=== PATIENT | male | born 1995 | race Hispanic/Latino ===

== ENCOUNTER 2018-06-11 21:45 | Inpatient (IN) | payer BC ==
[2018-06-11 22:02] VITALS: O2SAT 100
--- NOTE | 2018-06-11 22:54 | ED PDOC ---
HPI: Psych/Substance Abuse Time Seen by Provider: 06/11/18 22:40 Chief Complaint (Nursing): Psychiatric Evaluation Chief Complaint (Provider): PSYCH EVAL History Per: Patient (22 Y/O MALE H/O BIPOLAR DISORDER/SCHIZOPHRENIA NONCOMPLIANT WITH FOLLOW UP WITH OUTPATIENT PROGRAM AT [facility]. PATIENT WORKS T/W/TH BUT WAS NOTED BY WORK TO BE PACING OUTSIDE. USUALLY RECEIVES DEPAKOTE INJECTIONS AT OUTPATIENT FACILITY. FATHER NOTES PATIENT MADE STATEMENT OF SI BUT NO PLAN.) Past Medical History Reviewed: Historical Data, Nursing Documentation, Vital Signs Vital Signs: Last Vital Signs Temp 98.2 F 06/11/18 22:00 Pulse 62 06/11/18 22:00 Resp 16 06/11/18 22:00 BP 116/71 06/11/18 22:00 Pulse Ox 100 06/11/18 22:00 Primary Care Provider: Non [facility] Provider, - Family History Family History: States: No Known Family Hx - Allergies Allergies/Adverse Reactions: Allergies Allergy/AdvReac Type Severity Reaction Status Date / Time No Known Allergies Allergy Verified 06/11/18 22:01 Review of Systems ROS Statement: Except As Marked, All Systems Reviewed And Found Negative Physical Exam - Reviewed Nursing Documentation Reviewed: Yes Vital Signs Reviewed: Yes - Physical Exam Appears: Positive for: Well, Non-toxic, No Acute Distress Head Exam: Positive for: ATRAUMATIC, NORMAL INSPECTION, NORMOCEPHALIC Skin: Positive for: Normal Color, Warm, DRY Eye Exam: Positive for: EOMI, Normal appearance, PERRL ENT: Positive for: Normal ENT Inspection Neck: Positive for: Normal, Painless ROM Cardiovascular/Chest: Positive for: Regular Rate, Rhythm Respiratory: Positive for: CNT, Normal Breath Sounds Gastrointestinal/Abdominal: Positive for: Normal Exam, Soft Back: Positive for: Normal Inspection Extremity: Positive for: Normal ROM Neurological/Psych: Positive for: Awake, Alert, Normal Tone - Laboratory Results Result Diagrams: 06/11/18 22:57 06/11/18 22:57 - ECG O2 Sat by Pulse Oximetry: 100 - Progress ED Course And Treament: seen by crisis d/w dr. han admitted to dr. han for schizophrenia Disposition - Clinical Impression Clinical Impression: Schizophrenia - Patient ED Disposition Is Patient to be Admitted: Yes - Disposition Disposition Time: 01:14 Condition: FAIR - Pt Status Changed To: Hospital Disposition Of: Inpatient - Admit Certification Admit to Inpatient:: After my assessment, the patient will require hospitalization for at least two midnights. This is because of the severity of symptoms shown, intensity of services needed, and/or the medical risk in this patient being treated as an outpatient.
[2018-06-11 23:43] LABS: BASO % 0.7 % (0.0-2.0); EOS # 0.1 K/uL (0.0-0.7); EOS % 1.7 % (0.0-4.0); LYMPH # 2.4 K/uL (1.0-4.3); LYMPH % 37.9 % (20.0-40.0); MEAN CORPUSCULAR HEMOGLOBIN 26.2 pg (27.0-31.0); MEAN CORPUSCULAR HGB CONC 32.3 g/dL (33.0-37.0); MEAN PLATELET VOLUME 9.9 fl (7.2-11.7); MONO # 0.5 K/uL (0.0-0.8); MONO % 8.4 % (0.0-10.0); NEUT # 3.3 K/uL (1.8-7.0); NEUT % 51.3 % (50.0-75.0); NRBC % 0.1 % (0.0-0.0); RBC 5.35 Mil/uL (4.40-5.90); RED CELL DISTRIBUTION WIDTH 13.6 % (11.5-14.5); SQUAMOUS EPITHIAL < 1 /hpf (0-5); URINE BACTERIA RARE (<OCC); URINE BILIRUBIN NEGATIVE (NEGATIVE); URINE BLOOD NEGATIVE (NEGATIVE); URINE COLOR YELLOW (YELLOW); URINE GLUCOSE (UA) NEG (NEGATIVE); URINE LEUKOCYTE ESTERASE NEG Leu/uL (Negative); URINE PROTEIN NEGATIVE (NEGATIVE); URINE UROBILINOGEN 0.2-1.0 mg/dL (0.2-1.0); WHITE BLOOD COUNT 6.4 K/uL (4.8-10.8)
[2018-06-11 23:45] LABS: URINE CLARITY SLIGHT-CLOUDY (Clear)
[2018-06-11 23:51] LABS: ALB/GLOB RATIO 1.3 (1.0-2.1); ALBUMIN 4.7 g/dL (3.5-5.0); ALT/SGPT 37 U/L (21-72); AST/SGOT 30 U/L (17-59); BLOOD UREA NITROGEN 11 mg/dl (9-20); CALCIUM 9.7 mg/dL (8.4-10.2); GFR NON-AFRICAN AMERICAN > 60
[2018-06-12] LABS: BARBITURATES, UR NEGATIVE (NEGATIVE); BENZODIAZEPINES, UR NEGATIVE (NEGATIVE); OPIATES, UR NEGATIVE (NEGATIVE); PHENCYCLIDINE, UR NEGATIVE (NEGATIVE)
[2018-06-12] MEDS ORDERED: Magnesium Hydroxide Susp 30 ml UD PO PRN (02:13)
[2018-06-12] MEDS ORDERED: Alum-Mag Hydrox-Simethicone Susp (30 mL) PO PRN (02:13)
[2018-06-12] MEDS ORDERED: DiphenhydrAMINE 50 mg/ml Inj IM PRN (02:13)
--- NOTE | 2018-06-12 02:33 | PCM.BM ---
<Samia Robb - Last Filed: 06/12/18 02:31> Treatment Plan Problems - Problems identified on initial assessmt Auditory Hallucinations Date Initiated: 06/12/18 Time Initiated: 02:32 Assessment reference: NA Status: Active Visual Hallucinations Date Initiated: 06/12/18 Time Initiated: 02:32 Assessment reference: NA Status: Active Altered Sleep Patterns Date Initiated: 06/12/18 Time Initiated: 02:32 Assessment reference: NA Status: Active Hopelessness/ Helplessness Date Initiated: 06/12/18 Time Initiated: 02:33 Assessment reference: NA Status: Active Treatment assets and liabiliti Patient Assests: adapts well, cooperative, motivated, self-reliant, ADL independent, physically healthy, good support system, negotiates basic needs Patient Liabilities: other (Autism) - Milieu Protocol Maintain good personal hygiene: daily Encourage regular showers, every shift Remind patient to perform daily oral care, every shift Assist patient to perform ADL's Conduct patient checks and document Observation sheet: Q15 minutes Maintain personal safety: every shift Educate patient to report safety concerns to staff, every shift Monitor environment for contraband/sharps Medication safety: Monitor for expected outcome, potential side effects: every shift, Assess barriers to learning: every shift, Assess readiness for medication education: every shift <Karolina Correa - Last Filed: 06/13/18 11:50> Treatment assets and liabiliti Patient Assests: adapts well, cooperative, motivated, self-reliant, good support system (Pt. reports having a loving and supportive relationship with parents and siblings. ) Patient Liabilities: relationship conflicts (Pt. denies any strained relationships but identifies parents separation as a stressor. ), other (Autism- resulting in limited insight/focus) Family Contact Family involvement: Family/SO is involved Family contact: Patient agrees to contact, Family has been contacted by patient, Telephone contact initiated by staff Family contact name: Alexey(father)([phone]) Family contacted how many times per week?: 2 Family contact comment: [employer] placed call to pts father (Alexey [phone]) to discuss pts progress on 3NP, collect further collateral information, and address any family concerns. [employer]per provided clinical updates regarding pts progress/current presentation on 3NP. [employer] Helper explained that pt. has reported improvement in sxs since admission (AH, sxs of depression/anxiety) but requires further stabilization through medication management and group supportive therapy. Pts father expressed understanding of the above. [employer] Helper reported that pt. appears socially withdrawn. Pts father explained that pt. might be having trouble adjusting to a new psychiatric unit since pt. has only ever been admitted to [facility]. [employer] Helper notified pts father that [facility] will be notified of pts hospitalization and aftercare appointment will be confirmed/scheduled by rewriter. Pts father reported that pt. is adherent with all aftercare and has a supportive family. Pts father reports that pt. has developed a supportive and loving relationship with sister in-law (Cassandra) who recommended [facility] based on hx of mental health tx. Benefits of family support and understanding of mental health tx discussed. Additional information regarding nature of tx provided on 3NP, weekend visiting hours, and unit rules/milieu was provided upon fathers request. Pts father denied having concerns regarding pts tx. [employer]per to continue to provide clinical updates through-out pts stabilization. - Outside Agency Agency 1 Agency contact name: [facility]) Agency contact number: ([phone]) - Goals for Treatment Patient goals for treatment: Patient to continue stabilization on 3NP through medication management and group/supportive therapy. Patient to be encouraged to attend groups regularly to promote self-awareness, reality oriented thought, and improve insight, compliance, coping skills and self-esteem. Patient to be provided with referral for appropriate level of aftercare to reduce risk of future hospitalizations and ensure safety in the community. Pt. identified having the voices "go away" as primary tx goal. Discharge/Continuing Care - Education Needs Education Needs: Family Medication, Family Community resources, Patient Medication, Patient Diagnosis/Disease Process, Patient Coping Skills, Patient Community resources, Patient Aftercare Safety Plan - Discharge Discharge Criteria: Tolerates medication w/o severe side effects, Free of Suicidal thoughts, Free of Homicidal thoughts, Free of paranoid thoughts, Normal sleep pattern, Ability to care for self Discharge to:: Home, With Family <Marlon Flores - Last Filed: 06/14/18 15:11> Discharge/Continuing Care - Treatment Team Participation Patient/Family/SO Statement: 06/14/18 15:11 Pt met with in treatment team on 06/14/18. Pt was told that he would be discharged on 06/15 and he was very excited with this news. Pt was able to discuss aftercare safety plan and healthy coping skills when he begins to feel overwhelmed. Pt reported he draws, works out and listens and writes music. Pt denied depression, SI/HI and AVT hallucinations. Pt reported he is feeling "good" and his appearance was bright and he was smiling. Pt was pleasant and polite. Pt was able to verbalize triggers of loud, overwhelming situation. Pt is oriented X4. Discussed with Family/SO: Yes Was Patient/Family/SO present at Treatment Team Meeting: Yes <Telma Sánchez - Last Filed: 06/17/18 11:18> - Diagnosis (1) Depression Status: Acute Interventions: 06/14/18 13:48 start risperidone (2) Schizophrenia Status: Acute Interventions: 06/14/18 13:48 start lexapro
--- NOTE | 2018-06-12 15:01 | PCM.PSYCH ---
Initial Psychiatric Evaluation - Initial Psychiatric Evaluation Type of Admission: Voluntary Legal Status: Capacity Chief Complaint (in patient's own words): I AM HAVING SUICIDAL THOUGHTS AND i AM VERY ANXIOUS History of Present Illness and Precipitating Events: PT IS 22YSold male with previous diagnosis of schizophrenia and autistic spectrum disorder brought to ER by father due to increased depression and suicidal ideation pt recently discharged from hospital , for past two weeks has been feeling anxious, experiencing panic attacks with increased heart rate ,sweating and tremulousness, pt stated feeling hopeless and helpless, poor motivation, isolating himself in his room, experieng suicidal ideation, with previous suicidal attempt by overdose on medications, pt reported recent divorce of parents on the unit presenting with depressed mood and affect, denied active thoughts of self ahrm on the unit denied command hallucinations Current Medications: Active Medications Generic Name Dose Route Start Last Admin Trade Name Freq PRN Reason Stop Dose Admin Acetaminophen 650 mg 06/12/18 02:13 Tylenol 325mg Tab PO Q4 PRN Pain, moderate (4-7) Al Hydrox/Mg Hydrox/Simethicone 30 ml 06/12/18 02:13 Maalox Plus 30 Ml PO Q4 PRN Dyspepsia Benztropine Mesylate 1 mg 06/12/18 22:00 Cogentin PO HS KATIUSKA Diphenhydramine HCl 50 mg 06/12/18 02:13 Benadryl IM Q6 PRN Extrapyramidal S/S Unable PO Diphenhydramine HCl 50 mg 06/12/18 02:13 Benadryl PO Q6 PRN Extrapyramidal Symptoms Diphenhydramine HCl 50 mg 06/12/18 02:18 Benadryl PO HS PRN Sleep Divalproex Sodium 500 mg 06/13/18 09:00 Depdunia White(*Bid*) PO DAILY KATIUSKA Divalproex Sodium 1,000 mg 06/12/18 22:00 Jewels White(*Bid*) PO HS KATIUSKA Escitalopram Oxalate 5 mg 06/12/18 22:00 Lexapro PO HS KATIUSKA Haloperidol 5 mg 06/12/18 02:13 Haldol PO Q4 PRN Agitation Haloperidol Lactate 5 mg 06/12/18 02:13 Haldol IM Q4 PRN Agitation, Unable to Take PO Lorazepam 2 mg 06/12/18 02:13 Ativan IM Q4 PRN Anxiety/Agitation,Unable PO Lorazepam 1 mg 06/12/18 02:13 Ativan PO Q8 PRN Anxiety/Agitation Magnesium Hydroxide 30 ml 06/12/18 02:13 Milk Of Magnesia PO HS PRN Constipation Risperidone 3 mg 06/12/18 22:00 Risperdal M-Tab PO HS KATIUSKA Past Psychiatric History - Past Psychiatric History Explanation of prior treatment: multiple inpatient hospitalizations since age 10, one suicidal attempt by overdose Pertinent Medical Hx (Current Medical&Sleep Prob, Allergies): Allergies Allergy/AdvReac Type Severity Reaction Status Date / Time peanut Allergy SHORTNESS Verified 06/12/18 02:21 OF BREATH shellfish Allergy SHORTNESS Uncoded 06/12/18 02:21 OF BREATH Mental Status Examination - Personal Presentation Personal Presentation: Looks stated age - Affect Affect: Constricted, Depressed - Motor Activity Motor Activity: Psychomotor Retardation - Reliability in Providing Information Reliability in Providing Information: Fair - Speech Speech: Relevant - Mood Mood: Depressed, Anxious - Formal Thought Process Formal Thought Process: Circumstantial - Obsessions/Compulsions Obsessions: No Compulsions: No - Cognitive Functions Orientation: Person, Place, Situation Sensorium: Alert Abstract Thinking: [place] Judgement: Imparied, as evidence by: Poor judgement Memory: Recent intact, as evidence by: Ability to recall events of the day - Risk Risk: Suicidal, Diminished functioning - Strength & Assets Inventory Strength & Assets Inventory: Family support - Limitations Additional comments: work problems DSM 5 DX - DSM 5 DSM 5 Diagnosis: schizophrenia depression autistic spectrum disorder - Recommended/Plan of Treatment Treatment Recommendations and Plan of Treatment: depakote 500mg daily, 1500mg qhs risperidone 3mg qhs, cogentin 1mg qhs lexapro 5mg daily cbt group and supportive therapy
[2018-06-12] MEDS: Divalproex 500 mg DR(BID formulation) PO SCH (21:09)
[2018-06-12] MEDS: Risperidone M tab 1 MG PO SCH (21:09)
[2018-06-13] MEDS: Divalproex 500 mg DR(BID formulation) PO SCH ×2 (13:26→21:21)
--- NOTE | 2018-06-13 14:54 | PCM.PYCHPN ---
Psychiatric Progress Note - Psychiatric Progress Note Patient seen today, length of contact: pt evaluated discussed with team chart reviewed Patient Chief Complaint: I am tired Problems Identified/Issues Discussed: pt seen in bed, partial eye contact low energy and low motivation, guarded, isolates himself in the room, continues to be depressed,discussed increasing dose of lexapro, pt denied side effects, denied active thoughts of self harm on the unit, denied command hallucinations Medical Problems: multiple inpatient hospitalizations since age 10, one suicidal attempt by overdose DSM 5 Symptoms Update: schizophrenia depression autistic spectrum disorder Medication Change: Yes (increase lexapro ) Medical Record Reviewed: Yes Mental Status Examination - Cognitive Function Orientation: Person, Place, Situation Attention: WNL Concentration: WNL Association: WNL Fund of Knowledge: Poor Decription of patient's judgement and insights: partial insight fair judgment - Mood Mood: Depressed, Anxious - Affect Affect: Constricted, Depressed - Speech Speech: Soft - Formal Thought Process Formal Thought Process: Circumstantial - Suicidal Ideation Suicidal Ideation: No - Homicidal Ideation Homicidal Ideation: No Goal/Treatment Plan - Goal/Treatment Plan Need for Continued Stay: Severe depression anxiety, Discharge may exacerbated symptoms Progress Toward Problem(s) and Goals/Treatment Plan: depakote 500mg daily, 1500mg qhs/ follow up on depakote level risperidone 3mg qhs, cogentin 1mg qhs increase lexapro 10mg daily cbt group and supportive therapy
[2018-06-13] MEDS: Risperidone M tab 1 MG PO SCH (21:21)
[2018-06-14] MEDS: Divalproex 500 mg DR(BID formulation) PO SCH ×2 (09:35→21:16)
--- NOTE | 2018-06-14 13:48 | PCM.PYCHPN ---
Psychiatric Progress Note - Psychiatric Progress Note Patient seen today, length of contact: pt evaluated discussed with team chart reviewed Patient Chief Complaint: I am feeling better Problems Identified/Issues Discussed: pt evaluated with treatment team , reported better mood with increase in lexapro, no reported side effects, presenting with brighter affect, able to verbalize coping skills with stress denied any current suicidal or homicidal ideation, denied perceptual disturbances, no changes in sleep or appetite Medical Problems: multiple inpatient hospitalizations since age 10, one suicidal attempt by overdose DSM 5 Symptoms Update: schizophrenia autistic spectrum disorder Medication Change: No Medical Record Reviewed: Yes Mental Status Examination - Cognitive Function Orientation: Person, Place, Situation Attention: WNL Concentration: WNL Association: WNL Fund of Knowledge: Poor Decription of patient's judgement and insights: partial insight fair judgment - Mood Mood: Neutral - Affect Affect: Constricted, Depressed - Speech Speech: Appropriate - Formal Thought Process Formal Thought Process: Circumstantial - Suicidal Ideation Suicidal Ideation: No - Homicidal Ideation Homicidal Ideation: No Goal/Treatment Plan - Goal/Treatment Plan Need for Continued Stay: Severe depression anxiety, Discharge may exacerbated symptoms Progress Toward Problem(s) and Goals/Treatment Plan: depakote 500mg daily, 1500mg qhs/ risperidone 3mg qhs, cogentin 1mg qhs lexapro 10mg daily cbt group and supportive therapy
[2018-06-14] MEDS: Risperidone M tab 1 MG PO SCH (21:17)
[2018-06-15 06:15] VITALS: BP 121/76; PULSE 85; RESP 20; TEMP 98.2
[2018-06-15] MEDS: Divalproex 500 mg DR(BID formulation) PO SCH (08:34)
--- NOTE | 2018-06-15 10:04 | PCM.PYCHPN ---
Psychiatric Progress Note - Psychiatric Progress Note Patient seen today, length of contact: pt evaluated discussed with team chart reviewed Patient Chief Complaint: pt has been improved and stabilized with therapy and meds and doing well on lexapro.pt denies suicidal ideation and is stable for d/c to home. Medication Change: No Medical Record Reviewed: Yes Mental Status Examination - Cognitive Function Orientation: Person, Place, Situation Attention: WNL Concentration: WNL Association: WNL Fund of Knowledge: Poor - Mood Mood: Neutral - Affect Affect: Constricted, Depressed - Speech Speech: Appropriate - Formal Thought Process Formal Thought Process: Circumstantial - Suicidal Ideation Suicidal Ideation: No - Homicidal Ideation Homicidal Ideation: No Goal/Treatment Plan - Goal/Treatment Plan Need for Continued Stay: Severe depression anxiety, Discharge may exacerbated symptoms Progress Toward Problem(s) and Goals/Treatment Plan: pt is improved and stabilized on meds and therapy and stable for d/c to home today. pt will follow up in outpt at [facility] outpt.
== END 2018-06-15 01:15 | disposition home or self-care (01) | DRG 885 ==
LOC: H.ER 21:45 → H.ERHOLD 06-12 01:12 → H.PSYCH 06-12 02:04 → H.STEP 06-14 21:39
PROVIDERS: ADMIT Psychiatry & Neurology Psychiatry; ATTEND Psychiatry & Neurology Psychiatry
PROC: GZHZZZZ Group Psychotherapy (ICD-10-PCS; principal; 2018-06-12)
PROC: GZ51ZZZ Individual Psychotherapy, Behavioral (ICD-10-PCS; 2018-06-12)
PROC: GZ56ZZZ Individual Psychotherapy, Supportive (ICD-10-PCS; 2018-06-12)
DX: F20.9 Schizophrenia, unspecified (principal); F32.9 Major depressive disorder, single episode, unspecified; F41.0 Panic disorder [episodic paroxysmal anxiety]; F84.0 Autistic disorder; Z91.5 Personal history of self-harm